=== PATIENT | female | born 1995 | race Two or more races ===

== ENCOUNTER 2022-07-19 00:57 | Emergency (ER) | payer OTHER, SELFPAY ==
[2022-07-19 01:13] VITALS: BP 116/72; PULSE 65; RESP 18; TEMP 36.5; O2SAT 100
--- NOTE | 2022-07-19 02:18 | ED.WOUNDLAC ---
HPI - Wound/Laceration General Chief Complaint: Wound/Laceration Stated Complaint: finger lac Time Seen by Provider: 07/19/22 01:30 History of Present Illness HPI narrative: Aleshia 27-year-old female presents the emergency room for evaluation of the laceration to her left index finger. Patient states that she was cutting onions and accidentally cut her finger. Patient states that she applied turmeric to the injury prior to arrival. Related Data Allergies Allergy/AdvReac Type Severity Reaction Status Date / Time No Known Allergies Allergy Verified 07/19/22 01:13 Review of Systems Review of Systems: CONSTITUTIONAL: Denies fever, chills, or sweats. EYES: Denies visual changes, redness, or discharge. ENT: Denies rhinorrhea, congestion, sore throat, or otalgia. CARDIOVASCULAR: Denies chest pain, palpitations, or edema. RESPIRATORY: Denies cough or dyspnea. GASTROINTESTINAL: Denies abdominal pain, nausea, vomiting, or diarrhea. GENITOURINARY: Denies dysuria or hematuria. SKIN: Reports laceration to left index finger MUSCULOSKELETAL: Denies back pain, joint pain, or myalgia. NEUROLOGIC: Denies headache, numbness, dizziness, or weakness. PSYCHIATRIC: Denies anxiety or depression. Exam Narrative: GENERAL: Well-appearing, well-nourished, no physical limitations, and in no acute distress. HEAD: Normocephalic, atraumatic. EYES: Conjunctivae normal, PERRLA and EOMI. CHEST: Clear to auscultation. No respiratory distress. No wheezes rales or rhonchi. No tenderness. HEART: Regular rate and rhythm. No murmur heard. Normal peripheral pulses. EXTREMITIES: Normal range of motion. No edema. No clubbing or cyanosis SKIN: 1 cm flap laceration to the tip of the left index finger bleeding is controlled NEURO: No focal deficits. Alert and oriented x3. MAEW. CN's II-XI intact bilaterally, normal gait PSYCH: Cooperative. Normal mood and affect. Course Course Emergency Course: 0215: Apply glue to the laceration. Attempt was unsuccessful. Discussed with patient that she would need stitches to tack the flap back to the finger. Patient was adamantly against sutures. Discussed with patient that there would be a delay in healing and possible scarring to the finger patient was okay with that. Will apply Steri-Strips and provide antibiotics Vital Signs Vital signs: Vital Signs Temperature 36.5 C 07/19/22 01:13 Pulse Rate 65 07/19/22 01:13 Respiratory Rate 18 07/19/22 01:13 Blood Pressure 116/72 07/19/22 01:13 Pulse Oximetry 100 07/19/22 01:13 Oxygen Delivery Room Air 07/19/22 01:13 Temperature 36.5 C 07/19/22 01:13 Pulse Rate 65 07/19/22 01:13 Respiratory Rate 18 07/19/22 01:13 Blood Pressure 116/72 07/19/22 01:13 Pulse Oximetry 100 07/19/22 01:13 Oxygen Delivery Room Air 07/19/22 01:13 Discharge Plan Discharge Clinical Impression: Laceration Patient Disposition: Home, Self-Care Condition: Stable Instructions: Antibiotic Form, Laceration (ED), Steristrips (ED) Prescriptions: New cephalexin 500 mg capsule 500 mg PO Q12H Qty: 14 0RF Follow-up/Referrals: PHYSICIAN NOT ON STAFF,NONSTAFF [Primary Care Provider] - Time of Disposition: 02:24
[2022-07-19] MEDS: TETANUS,DIPHTHERIA,AC PERTUSSIS ADULT (0.5 ML) BOOSTRIX IM (02:47)
[2022-07-19 03:00] VITALS: PULSE 76; RESP 18; O2SAT 99
== END 2022-07-19 03:01 | disposition home or self-care (01) ==
PROVIDERS: Emergency Provider Nurse Practitioner Family
DX: S61.211A Laceration without foreign body of left index finger without damage to nail, initial encounter (principal); Z23 Encounter for immunization; W26.0XXA Contact with knife, initial encounter; Y93.G1 Activity, food preparation and clean up
CPT/HCPCS: 12001; 90471; 90715; 99282

== ENCOUNTER 2022-07-21 18:29 | Emergency (ER) | payer OTHER, SELFPAY ==
[2022-07-21 18:45] VITALS: BP 106/62; PULSE 80; RESP 20; TEMP 36.9; O2SAT 97
--- NOTE | 2022-07-21 18:47 | ED.UPPEXIN ---
HPI - Extremity Injury (Upper) General Chief Complaint: Extremity Injury, Upper Stated Complaint: L. index finger lac, possible infection? Time Seen by Provider: 07/21/22 18:46 History of Present Illness HPI narrative: Female returns to the emergency room for further evaluation of left index finger laceration. Patient was seen in the emergency room 3 days ago for a lacerated left index finger after cutting onions. Surgical glue was attempted and unsuccessful. Patient refused stitches at that time. Steri-Strips were applied antibiotics were given. Patient returns concerned that her finger continues to bleed every time he touches something. Related Data Allergies Allergy/AdvReac Type Severity Reaction Status Date / Time No Known Allergies Allergy Verified 07/19/22 01:13 Review of Systems Review of Systems: CONSTITUTIONAL: Denies fever, chills, or sweats. EYES: Denies visual changes, redness, or discharge. ENT: Denies rhinorrhea, congestion, sore throat, or otalgia. CARDIOVASCULAR: Denies chest pain, palpitations, or edema. RESPIRATORY: Denies cough or dyspnea. GASTROINTESTINAL: Denies abdominal pain, nausea, vomiting, or diarrhea. GENITOURINARY: Denies dysuria or hematuria. SKIN: Reports left index finger laceration MUSCULOSKELETAL: Denies back pain, joint pain, or myalgia. NEUROLOGIC: Denies headache, numbness, dizziness, or weakness. PSYCHIATRIC: Denies anxiety or depression. Exam Narrative: GENERAL: Well-appearing, well-nourished, no physical limitations, and in no acute distress. HEAD: Normocephalic, atraumatic. EYES: Conjunctivae normal, PERRLA and EOMI. CHEST: Clear to auscultation. No respiratory distress. No wheezes rales or rhonchi. HEART: Regular rate and rhythm. No murmur heard. Normal peripheral pulses. EXTREMITIES: Normal range of motion. No edema. No clubbing or cyanosis SKIN: Left index finger: Steri-Strips intact. No erythema, no purulent drainage, no swelling, no warmth. No signs of lymphangitic spread. NEURO: No focal deficits. Alert and oriented x3. MAEW. CN's II-XI intact bilaterally, normal gait PSYCH: Cooperative. Normal mood and affect. Course Vital Signs Vital signs: Vital Signs Temperature 36.9 C 07/21/22 18:45 Pulse Rate 80 07/21/22 18:45 Respiratory Rate 20 07/21/22 18:45 Blood Pressure 106/62 07/21/22 18:45 Pulse Oximetry 97 07/21/22 18:45 Oxygen Delivery Room Air 07/21/22 18:45 Temperature 36.9 C 07/21/22 18:45 Pulse Rate 80 07/21/22 18:45 Respiratory Rate 20 07/21/22 18:45 Blood Pressure 106/62 07/21/22 18:45 Pulse Oximetry 97 07/21/22 18:45 Oxygen Delivery Room Air 07/21/22 18:45 Discharge Plan Discharge Clinical Impression: Finger injury Patient Disposition: Home, Self-Care Condition: Stable Instructions: Antibiotic Form, Laceration (ED) Additional Instructions: Continue taking your antibiotics as prescribed. Your finger looks like it is healing appropriately. As previously discussed there will be a delay in your healing because stitches were not placed. Wear the finger splint for protection. Continue taking Tylenol and ibuprofen as needed for discomfort. When your Steri-Strips fall off keep wound clean, covered and dry. Prescriptions: No Action cephalexin 500 mg capsule 500 mg PO Q12H Qty: 14 0RF Follow-up/Referrals: PHYSICIAN NOT ON STAFF,NONSTAFF [Primary Care Provider] - Time of Disposition: 18:46
--- NOTE | 2022-07-21 18:49 | PC.NURSE ---
pt. refused finger splint
== END 2022-07-21 19:00 | disposition home or self-care (01) ==
LOC: ANHED 18:56
PROVIDERS: Emergency Provider Nurse Practitioner Family
DX: S61.211A Laceration without foreign body of left index finger without damage to nail, initial encounter (principal); W26.9XXA Contact with unspecified sharp object(s), initial encounter; Y93.G1 Activity, food preparation and clean up
CPT/HCPCS: 29130; 99282

== ENCOUNTER 2022-07-31 21:33 | Emergency (ER) | payer OTHER, SELFPAY ==
[2022-07-31 21:50] VITALS: BP 104/59; PULSE 86; RESP 20; TEMP 36.4; O2SAT 100
--- NOTE | 2022-07-31 22:23 | ED.WOUNDLAC ---
HPI - Wound/Laceration General Chief Complaint: Wound/Laceration Stated Complaint: wound check Time Seen by Provider: 07/31/22 22:04 Source: patient Mode of arrival: ambulatory Limitations: no limitations History of Present Illness HPI narrative: This is a 27-year-old female that presents to the emergency department for a wound check. Reports she sustained a laceration 12 days ago. She did not want stitches at that time. They attempted at skin adhesive. This did not hold so Steri-Strips were placed on top. Reports the wound has continued to be painful and the Steri-Strips have not fallen off yet. Denies fever, erythema, edema, or abnormal drainage. Related Data Home Medications Medication Instructions Recorded Confirmed No Home Medications 07/31/22 07/31/22 Allergies Allergy/AdvReac Type Severity Reaction Status Date / Time No Known Allergies Allergy Verified 07/31/22 21:52 Review of Systems Review of Systems: CONSTITUTIONAL: Denies fever SKIN: Reports wound All systems reviewed & are unremarkable except as noted in HPI and below PMFSH Past Medical History Medical History (Updated 07/31/22 @ 23:19 by Katelyn Duarte PA-C) No active medical problems Social History Social History (Updated 07/31/22 @ 22:25 by Katelyn Duarte PA-C) Smoking status: Never smoker Exam Narrative: GENERAL: Well-appearing, well-nourished, and in no acute distress. HEAD: Normocephalic, atraumatic. EYES: EOMI. EXTREMITIES: Normal range of motion. Left 2nd finger with flap avulsion injury that appears to have some necrotic tissue or possible old skin adhesive. Two steri strips are in place. There is no surrounding edema, erythema or abnormal drainage from the wound. SKIN: Warm, dry, no rash. NEURO: No focal deficits. Alert and oriented x3. PSYCH: Normal mood and affect Course Vital Signs Vital signs: Vital Signs Temperature 97.6 F 07/31/22 21:50 Pulse Rate 86 07/31/22 21:50 Respiratory Rate 20 07/31/22 21:50 Blood Pressure 104/59 L 07/31/22 21:50 Pulse Oximetry 100 07/31/22 21:50 Oxygen Delivery Room Air 07/31/22 21:50 Temperature 97.6 F 07/31/22 21:50 Pulse Rate 86 07/31/22 21:50 Respiratory Rate 20 07/31/22 21:50 Blood Pressure 104/59 L 07/31/22 21:50 Pulse Oximetry 100 07/31/22 21:50 Oxygen Delivery Room Air 07/31/22 21:50 Procedures Nerve Block Nerve Block 1: Nerve block date: 07/31/22 Nerve block time: 23:17 Local Anesthetic: lidocaine 1% Amount of anesthesia used (mL): 4 Side: left Nerve Blocks: digital Procedure Successful: Yes Patient Tolerated Procedure: well and no complications Complications: none Additional Comments: Wound to the left second finger debrided with scissors and forceps then irrigated with normal saline. Antibiotic ointment applied MDM - Wound/Laceration MDM Narrative Medical decision making narrative: Patient with a wound to the left second finger. Sustained about 10 days ago. Patient initially refused suturing. She wanted them to try skin glue. This was attempted without great success so Steri-Strips were applied. Patient Steri-Strips were still in place and her wound was painful which prompted her to be evaluated again. Steri-Strips were removed. I did some debridement of the glue and some necrotic tissue. The wound now appears healthy. She had no surrounding erythema, edema or warmth of the finger. Instructed on continued care of the wound. She is to follow-up with primary care doctor. She was given warnings to return to the ER Critical Care Time Critical Care Time Critical Care Time: No Discharge Plan Discharge Clinical Impression: Visit for wound check Patient Disposition: Home, Self-Care Condition: Stable Instructions: Acute Wounds (ED) Additional Instructions: Return to the emergency department if you experience fever, redness or swellin
[2022-07-31] MEDS: LIDOCAINE, EPINEPHRINE, TETRACAINE VISCOUS SOLN 3 ML TOPICAL (22:27)
[2022-07-31] MEDS: LIDOCAINE HCL 1% PF 30 ML VIAL 20 ML INFILTRATE (23:20)
== END 2022-07-31 23:26 | disposition home or self-care (01) ==
PROVIDERS: Emergency Provider Emergency Medicine
DX: S61.211A Laceration without foreign body of left index finger without damage to nail, initial encounter (principal); X58.XXXA Exposure to other specified factors, initial encounter
CPT/HCPCS: 11042; 99282